=== PATIENT | female | born 1975 | race Caucasian/White ===

== ENCOUNTER 2016-10-20 05:54 | Day surgery (SDC) | payer OTHER ==
[~2016-10-20] VITALS: Ht 170.2 cm; Wt 76.5 kg
[~2016-10-20 05:54] MED LIST: IBUP800T PO; METO25TA35 PO; OXYC5CAP4 PO; POTASSIUM
[2016-10-20] MEDS ORDERED: LACTATED RINGERS 1,000 ML IV SCH (06:27)
[2016-10-20] MEDS ORDERED: PNEUMOCOCCAL VACC.PER PHARMACY IM ONE (06:30)
[2016-10-20 06:31] VITALS: BP 141/95
[2016-10-20] MEDS ORDERED: SCOPOLAMINE PATCH, 1.5MG PATCH.TD72 TD ONE ×2 (06:55→07:00)
[2016-10-20] MEDS ORDERED: FLUORESCEIN SODIUM 500 MG/5 ML ONE (07:00)
[2016-10-20] MEDS ORDERED: BUPIVACAINE/PF-EPI 0.25% 1:200K ONE (07:00)
[2016-10-20 07:05] LABS: HCG UR OBC PASS
[2016-10-20 07:08] LABS: ASPARTATE AMINO TRANSFERASE 67 U/L (15-37); BLOOD UREA NITROGEN 5 mg/dL (7-18)
[2016-10-20] MEDS ORDERED: MIDAZOLAM 1 MG/ML, 2ML ONE (07:11)
[2016-10-20] MEDS ORDERED: FENTANYL PF 250 MCG/5ML ONE (07:11)
[2016-10-20] MEDS ORDERED: ROCURONIUM 10 MG/ML ONE (07:46)
[2016-10-20] MEDS ORDERED: ONDANSETRON 2MG/ML, 2ML ONE (07:46)
[2016-10-20] MEDS ORDERED: DEXAMETHASONE 4 MG/ML, 1ML ONE (07:46)
[2016-10-20] MEDS ORDERED: PROPOFOL 10 MG/ML, 20ML ONE (07:46)
[2016-10-20] MEDS ORDERED: CEFAZOLIN 1,000 MG ONE (07:46)
[2016-10-20] MEDS ORDERED: SUCCINYLCHOLINE 20 MG/ML, 10ML ONE (07:46)
[2016-10-20] MEDS ORDERED: ONDANSETRON 2MG/ML, 2ML IVPush PRN (08:30)
[2016-10-20] MEDS ORDERED: LABETALOL 5MG/ML, 20ML IV PRN (08:30)
[2016-10-20] MEDS ORDERED: OXYcodone 5 MG/5 ML ORAL.SOL UDC PO PRN (08:30)
[2016-10-20] MEDS ORDERED: hydrALAzine 20 MG/ML, 1ML IV PRN (08:30)
[2016-10-20] MEDS ORDERED: ACETAMINOPHEN 325 MG TABLET PO PRN (08:30)
[2016-10-20] MEDS ORDERED: METOCLOPRAMIDE 5 MG/ML, 2ML IV PRN (08:30)
[2016-10-20] MEDS ORDERED: HYDROmorphone 2 MG/ML, 1ML ONE (10:21)
[2016-10-20] MEDS ORDERED: FENTANYL PF 100 MCG/2ML ONE ×2 (10:21→11:00)
[2016-10-20] MEDS ORDERED: OXYcodone 5 MG/5 ML ORAL.SOL UDC ONE (10:21)
[2016-10-20] MEDS: FENTANYL PF 100 MCG/2ML IV PRN ×4 (10:27→11:06)
[2016-10-20] MEDS ORDERED: KETOROLAC 30 MG/1 ML ONE (10:28)
[2016-10-20] MEDS ORDERED: LABETALOL 20 MG/4 ML ONE (10:29)
[2016-10-20] MEDS: HYDROmorphone 1 MG/ML, 1ML IV PRN ×3 (10:36→10:49)
== END 2016-10-20 13:00 | disposition home or self-care (01) ==
LOC: OUT 05:54
PROVIDERS: ATTEND Obstetrics & Gynecology Gynecologic Oncology
DX: D25.9 Leiomyoma of uterus, unspecified (principal); K66.0 Peritoneal adhesions (postprocedural) (postinfection); F17.210 Nicotine dependence, cigarettes, uncomplicated; Z86.19 Personal history of other infectious and parasitic diseases; Z90.49 Acquired absence of other specified parts of digestive tract; I10 Essential (primary) hypertension; F41.9 Anxiety disorder, unspecified; F32.9 Major depressive disorder, single episode, unspecified; E87.6 Hypokalemia; F10.10 Alcohol abuse, uncomplicated; Z83.3 Family history of diabetes mellitus; Z82.49 Family history of ischemic heart disease and other diseases of the circulatory system; Z80.0 Family history of malignant neoplasm of digestive organs
CPT/HCPCS: 36415; 58571; 80053; 81025; 85025; 85610; 85730; 86850; 86900; 86923; 88309; 88331; J0330; J0690; J1100; J1170; J2250; J2405; J2704; J3010; J7120; S2900